=== PATIENT | female | born 1965 | race Caucasian/White ===

== ENCOUNTER 2022-09-29 09:05 | Day surgery (SDC) | payer OTHER ==
[2022-09-26 16:26] VITALS: BMI 20.7
[2022-09-29] MEDS ORDERED: PROPOFOL 60 ML ONE (10:02)
[2022-09-29 10:49] VITALS: TEMP 97.9
[2022-09-29 11:27] VITALS: BP 110/69; PULSE 67; RESP 18
== END 2022-09-29 12:00 | disposition home or self-care (01) ==
LOC: FASU-ENDO 09:05
PROVIDERS: ATTEND Internal Medicine Gastroenterology
PROC: 0DJD8ZZ Inspection of Lower Intestinal Tract, Via Natural or Artificial Opening Endoscopic (ICD-10-PCS; principal; 2022-09-29 10:26)
DX: Z12.11 Encounter for screening for malignant neoplasm of colon (principal); K57.30 Diverticulosis of large intestine without perforation or abscess without bleeding; K64.1 Second degree hemorrhoids